=== PATIENT | male | born 1980 | race Caucasian/White ===

== ENCOUNTER 2020-02-08 11:01 | Emergency (ER) | payer OTHER, SELFPAY ==
[2020-02-08 11:03] VITALS: BP 157/73; PULSE 86; TEMP 36.9; O2SAT 97; BMI 48.8
[2020-02-08 11:15] VITALS: O2SAT 99
--- NOTE | 2020-02-08 11:22 | CT_ITS ---
STUDY: CT CERVICAL SPINE WITHOUT CONTRAST REASON FOR EXAM: Male, 39 years old. Pt was working and fell down 8-10 steps. Landed on wooden steps then fell onto concrete. RADIATION DOSAGE (If Supplied By Facility): CTDIvol = ( 35.34 ) mGy, DLP = ( 924.62 ) mGycm TECHNIQUE: High resolution transaxial imaging was performed without contrast material. Sagittal and coronal images were reconstructed. Individualized dose optimization techniques were used for this CT. COMPARISON: None FINDINGS: Normal craniovertebral junction. Normal anterior atlantoaxial articulation. Normal odontoid process. Normal cervical lordosis. Normal vertebral bodies and posterior osseous elements. C2-3: Normal endplates. Normal disc height and morphology. Normal central canal and intervertebral neuroforamina. C3-4: Normal endplates. Normal disc height and morphology. Normal central canal and intervertebral neuroforamina. C4-5: Normal endplates. Normal disc height and morphology. Normal central canal and intervertebral neuroforamina. C5-6: Normal endplates. Normal disc height and morphology. Normal central canal and intervertebral neuroforamina. C6-7: Normal endplates. Normal disc height and morphology. Normal central canal and intervertebral neuroforamina. C7-T1: Normal endplates. Normal disc height and morphology. Normal central canal and intervertebral neuroforamina. Normal visualized soft tissue structures. Partial opacification of the mastoid air cells bilaterally. Mucosal thickening along the posterior aspects of the ethmoid sinuses. CT/Spine Cervical without Contras IMPRESSION: Normal unenhanced CT examination of the cervical spine. Electronically Signed: Raymond Saleh, at 12:26 EST , Service support ,
--- NOTE | 2020-02-08 11:23 | RAD_ITS ---
STUDY: X-RAY - RIGHT SHOULDER REASON FOR EXAM: Male, 39 years old. Fall down stairs, pain TECHNIQUE: 4 view(s) of the shoulder. COMPARISON: None. FINDINGS: Normal glenohumeral articulation. Normal acromioclavicular joint. Normal acromion. Normal humeral head and visualized proximal humerus. The soft tissue structures are unremarkable. Normal visualized pulmonary apex. RAD/Shoulder min 2 Views IMPRESSION: Normal x-ray examination of the shoulder. Electronically Signed: Raymond Saleh, at 12:54 EST , Service support ,
--- NOTE | 2020-02-08 11:23 | RAD_ITS ---
STUDY: X-RAY - UNILATERAL RIBS ( RIGHT ) WITH CHEST REASON FOR EXAM: Male, 39 years old. Fall down stairs, pain TECHNIQUE - RIBS: 4 view(s) of the ribs. TECHNIQUE - CHEST: Single PA view of the chest. COMPARISON: None. FINDINGS - RIBS: Normal visualized ribs without a demonstrated fracture. FINDINGS - CHEST: The lungs are clear and expanded. There is no demonstrated pleural abnormality. There is borderline cardiomegaly. Normal mediastinum and ronnell. Normal visualized pulmonary arteries. Normal visualized aortic arch and descending thoracic aorta. Normal visualized thoracic spine. Normal visualized ribs, clavicles, and shoulders. There is no demonstrated abnormality of the visualized soft tissue structures of the upper abdomen. RAD/Ribs Uni Min 3V w/PA Chest IMPRESSION: RIBS: Normal x-ray examination of the ribs. CHEST: Borderline cardiomegaly. Electronically Signed: Raymond Saleh, at 12:53 EST , Service support ,
--- NOTE | 2020-02-08 11:35 | ED.VISSUMM ---
- ER Visit Summary Date of Service: 02/08/20 Chief Complaint: Fall History of Present Illness: The patient is a [address] Valentine. He reports that today he slipped and fell down approximately 10 wooden steps when going down to her basement. He is not on anticoagulants. However he does report he had a brief loss of consciousness. He denies any head pain. He reports he has neck pain is 7-10 severity, low back pain is 10 out of 10 severity, right shoulder pain is 7 out of 10 severity, and right posterior rib pain that is 7 out of 10 in severity. He denies shortness of breath. Review of systems is otherwise negative. Physical Examination: Vitals: Stable. Afebrile. Head: Atraumatic. Normocephalic. Neck: Mild diffuse tenderness palpation over the entire cervical spine and the paraspinous musculature. There is no point tenderness.. Back: Severe tenderness palpation over the lumbar spine and paraspinous muscular lumbar region bilaterally. No point tenderness.. General: A&O x 3. NAD. Cardiovascular exam: Regular rate and rhythm, no murmur, rub or gallop. Respiratory exam: Chest nontender. No crepitus. Clear to auscultation bilaterally. No wheezes or stridor. Moderate tenderness to palpation over the lower ribs posteriorly on the right. He has no pain with anterior posterior/lateral compression of his chest. Abdominal exam: Soft, nontender, nondistended, normal bowel sounds. No pain in RUQ or LUQ specifically. No peritoneal signs. Extremity: Mild tenderness palpation over the right deltoid. No pain over the right clavicle.. No pain with range of motion. Test Results: Clinical Impression(s) from Imaging Studies Cervical Spine CT 02/08/20 11:22 IMPRESSION: Normal unenhanced CT examination of the cervical spine. Electronically Signed: Raymond Saleh, at 12:26 EST , Service support , Ribs w/Chest X-Ray 02/08/20 11:23 IMPRESSION: RIBS: Normal x-ray examination of the ribs. CHEST: Borderline cardiomegaly. Electronically Signed: Raymond Saleh, at 12:53 EST , Service support , Shoulder X-Ray 02/08/20 11:23 IMPRESSION: Normal x-ray examination of the shoulder. Electronically Signed: Raymond Saleh, at 12:54 EST , Service support , Brain CT 02/08/20 12:08 IMPRESSION: Normal unenhanced CT scan of the brain. Electronically Signed: Raymond Saleh, at 12:24 EST , Service support , ADDENDUM: 02/08/20 1232 Lumbar Spine X-Ray 02/08/20 12:20 IMPRESSION: Degenerative changes of the spine, as detailed above. Electronically Signed: Raymond Saleh, at 12:52 EST , Service support , Emergency Department Course and Treatment: An [facility] report was obtained which was negative. Patient given morphine and Zofran IV. He is resting more comfortably. Treatment Plan: Patient will be discharged instructions use Tylenol and/or ibuprofen for pain. Instructed on symptomatic management other than this. Follow-up with [facility] in 1 week for another exam. Return to the emergency department for any worsening symptoms. Disposition: To home in improved and stable condition. Impression: 1. Fall. 2. Concussion. 3. Cervical strain. 4. Lumbar strain. This note was generated with [employer] software. It may contain incorrect words, spelling, and punctuation that were not noted in review of the chart prior to signing ED Disposition - Plan for ED Patient: Instructions: ED Back Pain (Acute or Chronic), ED Concussion Referrals: [facility] [GROUP OF PHYSICIANS] - 1 Week
[2020-02-08] MEDS: Ondansetron 4 MG/2 ML Vial IV (11:56)
[2020-02-08] MEDS: Morphine 4 MG/ML Syringe IV (11:56)
--- NOTE | 2020-02-08 12:07 | NURSING ---
Call to corporate care. Michaela will be in.
--- NOTE | 2020-02-08 12:08 | CT_ITS ---
STUDY: CT BRAIN WITHOUT CONTRAST REASON FOR EXAM: Male, 39 years old. Pt was working and fell down 8-10 steps. Landed on wooden steps then fell onto concrete. RADIATION DOSAGE (If Supplied By Facility): CTDIvol = ( 44.99 ) mGy, DLP = ( 914.22 ) mGycm TECHNIQUE: Transaxial CT imaging of the brain was performed without administration of intravenous contrast material. Individualized dose optimization techniques were used for this CT. COMPARISON: No relevant priors. FINDINGS: Normal soft tissue structures. Normal calvarium. Normal size ventricles and extra-axial spaces for the patient''s age. Normal white matter tracts of the cerebral hemispheres. Normal basal ganglia and thalami. Normal brainstem. Normal cerebellum. There is no intracranial hemorrhage. There are no findings of an acute ischemic infarction. Normal visualized paranasal sinuses. CT/Brain/Head without Contrast IMPRESSION: Normal unenhanced CT scan of the brain. Electronically Signed: Raymond Saleh, at 12:24 EST , Service support ,
--- NOTE | 2020-02-08 12:20 | RAD_ITS ---
STUDY: X-RAY - LUMBAR SPINE REASON FOR EXAM: Male, 39 years old. Fall down stairs, pain TECHNIQUE: 3 view(s) of the lumbar spine were obtained. COMPARISON: None FINDINGS: There is an exaggerated lumbar lordosis. There is no substantial scoliosis. There is a normal alignment of the vertebrae. Mild anterior spondylosis at multiple levels. Normal disc space heights. The soft tissue structures are unremarkable. RAD/Lumbar Spine 2 or 3 Views IMPRESSION: Degenerative changes of the spine, as detailed above. Electronically Signed: Raymond Saleh, at 12:52 EST , Service support ,
== END 2020-02-08 13:34 | disposition home or self-care (01) ==
LOC: ED 12:20
PROVIDERS: Emergency Provider Emergency Medicine
DX: S06.0X1A Concussion with loss of consciousness of 30 minutes or less, initial encounter (principal); S16.1XXA Strain of muscle, fascia and tendon at neck level, initial encounter; S39.012A Strain of muscle, fascia and tendon of lower back, initial encounter; W10.9XXA Fall (on) (from) unspecified stairs and steps, initial encounter
CPT/HCPCS: 70450; 71101; 72100; 72125; 73030; 96374; 96375; 99285; J2405